=== PATIENT | female | born 1985 | race Caucasian/White ===

== ENCOUNTER 2016-10-26 07:03 | Emergency (ER) | payer BC ==
--- NOTE | 2016-10-26 07:15 | UC ---
Throat Pain/Nasal Bill HPI - HPI Summary HPI Summary: cough congestion x 7 days, bilat ears plugged, nonprod cough, helped somewhat by mucinex. No fever. No hx asthma. s/p T&A. 9month old daughter is on Amox for OM. - History of Current Complaint Stated Complaint: COLD SYMPTOMS Time Seen by Provider: 10/26/16 07:08 Hx Obtained From: Patient Hx Last Menstrual Period: 12/22/14 ?: No Onset/Duration: Gradual Onset, Lasting Days, Still Present Severity: Moderate Pain Intensity: 4 Pain Scale Used: 0-10 Numeric Cough: Nonproductive Associated Signs & Symptoms: Positive: Sinus Discomfort, Nasal Discharge. Negative: Fever Related History: T & A - Epiglottits Risk Factors Epiglottis Risk Factors: Negative - Allergies/Home Medications Allergies/Adverse Reactions: Allergies Allergy/AdvReac Type Severity Reaction Status Date / Time Metronidazole [From Flagyl] Allergy Intermediate Difficulty Verified 10/26/16 07 :15 Breathing Prednisone Allergy Intermediate Difficulty Verified 10/26/16 07:15 Breathing Propranolol Allergy Intermediate Hives Verified 10/26/16 07:15 Home Medications: Home Medications Ibuprofen TAB* [Motrin TAB* 800 MG] 800 mg PO ONCE PRN 10/26/16 [History Confirmed 10/26/16] Mucinex Severe Congestion 1 dose PO ONCE PRN 10/26/16 [History Confirmed ] Multivitamins/Minerals TAB* [Thera M Plus TAB*] 1 tab PO DAILY 10/26/16 [ History Confirmed 10/26/16] Pseudoephedrine-Ibuprofen [Advil Cold & Sinus] 1 tab PO DAILY PRN 10/26/16 [ History Confirmed 10/26/16] PMH/Surg Hx/FS Hx/Imm Hx Previously Healthy: Yes Psychological History Of: Reports: Anxiety - Surgical History Surgical History: Yes Surgery Procedure, Year, and Place: Tonsillectomy, - Family History Known Family History: Positive: Hypertension - Social History Occupation: Employed Full-time Lives: With Family Alcohol Use: None Substance Use Type: None Smoking Status (MU): Never Smoked Tobacco - Immunization History Most Recent Influenza Vaccination: 08/08/15 Most Recent Tetanus Shot: 12/26/15 Most Recent Pneumonia Vaccination: none Review of Systems Constitutional: Negative Skin: Negative Eyes: Negative ENT: Sore Throat, Ear Ache Respiratory: Cough Cardiovascular: Negative Gastrointestinal: Negative Genitourinary: Negative Motor: Negative Neurovascular: Negative Musculoskeletal: Negative Neurological: Negative Psychological: Negative All Other Systems Reviewed And Are Negative: Yes Physical Exam Triage Information Reviewed: Yes Appearance: Well-Nourished, Ill-Appearing, Pain Distress Vital Signs: noted and normal Vital Signs Reviewed: Yes Eyes: Positive: Conjunctiva Clear ENT: Positive: Pharyngeal erythema, TM dull, Other: - sinus tenderness bilat. Negative: Tonsillar swelling, Tonsillar exudate Neck: Positive: Supple, Nontender, No Lymphadenopathy Respiratory: Positive: Chest non-tender, Lungs clear, Normal breath sounds, No respiratory distress Cardiovascular: Positive: RRR, No Murmur, Pulses Normal, Brisk Capillary Refill Musculoskeletal: Positive: Strength Intact, ROM Intact Neurological: Positive: Alert, Muscle Tone Normal Psychological Exam: Normal Skin Exam: Normal Throat Pain/Nasal Course/Dx - Differential Dx/Diagnosis Differential Diagnosis/HQI/PQRI: Otitis Media, Pharyngitis, Sinusitis, URI Provider Diagnoses: acute sinusitis Discharge - Discharge Plan Condition: Stable Disposition: HOME Prescriptions: Amoxicillin/Clavulanate TAB* [Augmentin TAB 875*] 875 mg PO BID #20 tab Benzonatate CAP* [Tessalon CAP*] 100 mg PO TID PRN #20 cap PRN Reason: Cough Patient Education Materials: Sinusitis (ED) Referrals: Brittany Pringle [Primary Care Provider] -
[2016-10-26 07:24] VITALS: BP 135/82
== END 2016-10-26 07:34 | disposition home or self-care (01) ==
LOC: UCCORT 07:03
DX: J01.90 Acute sinusitis, unspecified (principal); Z88.1 Allergy status to other antibiotic agents
CPT/HCPCS: 99212; G0463

== ENCOUNTER 2017-06-29 07:52 | Emergency (ER) | payer BC, OTHER ==
[2017-06-29 08:02] VITALS: BP 117/75
--- NOTE | 2017-06-29 08:32 | UC ---
Respiratory Complaint HPI - HPI Summary HPI Summary: 32 yo female with 2 week hx of sinus pressure and pain which has been waxing and waning worse x 3 days with right cheek swelling and right upper dental sensitivity - History of Current Complaint Chief Complaint: UCRespiratory Stated Complaint: SINUS PRESSURE Time Seen by Provider: 06/29/17 08:05 Hx Obtained From: Patient Hx Last Menstrual Period: 06/21/17 Onset/Duration: Gradual Onset, Lasting Weeks Timing: Constant Severity Initially: Mild Severity Currently: Moderate Pain Intensity: 8 - PT DECLINES ANALGESIC Pain Scale Used: 0-10 Numeric Associated Signs And Symptoms: Positive: Nasal Congestion, Sinus Discomfort - Allergies/Home Medications Allergies/Adverse Reactions: Allergies Allergy/AdvReac Type Severity Reaction Status Date / Time Metronidazole [From Flagyl] Allergy Intermediate Difficulty Verified 06/29/17 07 :57 Breathing Prednisone Allergy Intermediate Difficulty Verified 06/29/17 07:57 Breathing Propranolol Allergy Intermediate Hives Verified 06/29/17 07:57 Home Medications: Home Medications Pseudoephedrine TAB* [Sudafed TAB*] 60 mg PO Q6H PRN 06/29/17 [History Confirmed 06/29/17] PMH/Surg Hx/FS Hx/Imm Hx Previously Healthy: Yes Respiratory History: Asthma - Surgical History Surgical History: Yes Surgery Procedure, Year, and Place: Tonsillectomy,. - Family History Known Family History: Positive: Hypertension Negative: Cardiac Disease, Diabetes - Social History Alcohol Use: Occasionally Substance Use Type: None Smoking Status (MU): Never Smoked Tobacco - Immunization History Most Recent Influenza Vaccination: 08/08/15 Most Recent Tetanus Shot: 12/26/15 Most Recent Pneumonia Vaccination: none Review of Systems Constitutional: Negative Skin: Negative Eyes: Negative ENT: Dental Pain, Nasal Discharge, Sinus Congestion, Sinus Pain/Tenderness Respiratory: Negative Cardiovascular: Negative Gastrointestinal: Negative Genitourinary: Negative Motor: Negative Neurovascular: Negative Musculoskeletal: Negative Neurological: Negative Psychological: Negative All Other Systems Reviewed And Are Negative: Yes Physical Exam Triage Information Reviewed: Yes Appearance: Well-Appearing, No Pain Distress, Well-Nourished Vital Signs: Initial Vital Signs Temp 97.9 F 06/29/17 07:58 Pulse 91 06/29/17 07:58 Resp 16 06/29/17 07:58 BP 117/75 06/29/17 07:58 Pulse Ox 100 06/29/17 07:58 Vital Signs Reviewed: Yes Eyes: Positive: Conjunctiva Clear ENT: Positive: Hearing grossly normal, Nasal congestion, TMs normal. Negative: Nasal drainage, TM bulging, TM dull, TM red, Tonsillar swelling, Tonsillar exudate, Trismus, Muffled/hoarse voice Dental: Negative: Percussion Tenderness @, Gross Decay/Caries @, Abscess @ Neck: Positive: Supple, Nontender, No Lymphadenopathy Respiratory: Positive: Lungs clear, Normal breath sounds, No respiratory distress, No accessory muscle use Cardiovascular: Positive: RRR, No Murmur Neurological: Positive: Alert, Muscle Tone Normal Psychological Exam: Normal Skin Exam: Normal UC Diagnostic Evaluation - Laboratory O2 Sat by Pulse Oximetry: 100 Respiratory Course/Dx - Differential Dx/Diagnosis Provider Diagnoses: acute sinusitis Discharge - Discharge Plan Condition: Stable Disposition: HOME Prescriptions: Amoxicillin PO (*) [Amoxicillin 875 MG (*)] 875 mg PO BID #20 tab Patient Education Materials: Sinusitis (ED) Referrals: Brittany Pringle [Primary Care Provider] - 5 Days Additional Instructions: warm facial compresses saline nasal spray Images Head: 1 - swollen/tender/no overlying erthema
== END 2017-06-29 08:20 | disposition home or self-care (01) ==
LOC: UCCORT 07:52
DX: J01.90 Acute sinusitis, unspecified (principal); Z88.3 Allergy status to other anti-infective agents; J45.909 Unspecified asthma, uncomplicated
CPT/HCPCS: 99212; G0463

== ENCOUNTER 2018-07-08 11:15 | Inpatient (IN) | payer OTHER ==
[2018-07-08 12:11] LABS: ABS Basophils 0 10^3/ul (0-0.2); ABS Eosinophils 0 10^3/ul (0-0.6); ABS Lymphocytes 1.1 10^3/ul (1.0-4.8); ABS Neutrophils 10.3 10^3/ul (1.5-7.7); ABS Nucleated RBC 0 10^3/ul; Eosinophil % 0.3 % (0-6); Hematocrit 40 % (35-47); Hemoglobin 13.6 g/dl (12.0-16.0); Lymphocyte % 8.9 % (25-47); Mean Corpuscular HGB Conc 35 g/dl (31-36); Mean Corpuscular Hemoglobin 32 pg (27-31); Mean Corpuscular Volume 92 fL (80-97); Mean Platelet Volume 9.5 um3 (7.4-10.4); Nucleated Red Blood Cells % 0; Platelet Count 229 10^3/ul (150-450); Red Blood Count 4.29 10^6/ul (4.00-5.40); Red Cell Distribution Width 13 % (10.5-15); White Blood Count 12.5 10^3/ul (3.5-10.8)
[2018-07-08] MEDS: Acetaminophen TAB* 325 MG ONE (12:25)
[2018-07-08 12:29] LABS: EGFR Non-African American 104.5 (>60); Uric Acid 4.6 mg/dL (2.3-6.6)
--- NOTE | 2018-07-08 12:33 | PN ---
L&D Outpatient: Visit - Reproductive Information Estimated Due Date: 07/15/18 Gestational Age: 39 Weeks and 0 Days : 2 Para: 1 - Reason for Visit Visit Reason: headache - Antepartal Records Antepartal Record: Reviewed, Complicated by: - Patient History Patient History Significant: No Review of Systems Constitutional: Comfortable Gastrointestinal: No Nausea/Vomiting Genitourinary: No Bleeding, No Leaking Fluid Musculoskeletal: No Epigastric Pain Neurological: No Visual Changes, Headache L&D Outpatient: Exam Vitals - Most Recent: BP-153 /104 Lab Values - Entire Visit: Laboratory Tests 07/08/18 07/08/18 11:55 11:55 WBC 12.5 H RBC 4.29 Hgb 13.6 Hct 40 MCV 92 MCH 32 H MCHC 35 RDW 13 Plt Count 229 MPV 9.5 Neut % (Auto) 82.4 Lymph % (Auto) 8.9 L Mcminn % (Auto) 8.1 H Eos % (Auto) 0.3 Baso % (Auto) 0.3 Absolute Neuts (auto) 10.3 H Absolute Lymphs (auto) 1.1 Absolute Monos (auto) 1.0 H Absolute Eos (auto) 0 Absolute Basos (auto) 0 Absolute Nucleated RBC 0 Nucleated RBC % 0 Sodium 137 Potassium 3.7 Chloride 106 Carbon Dioxide 21 L Anion Gap 10 BUN 10 Creatinine 0.66 Est GFR ( Amer) 126.4 Est GFR (Non-Af Amer) 104.5 BUN/Creatinine Ratio 15.2 Glucose 76 Uric Acid 4.6 Calcium 9.4 Total Bilirubin 0.30 AST 14 ALT 11 Alkaline Phosphatase 98 Total Protein 7.0 Albumin 3.7 Globulin 3.3 Albumin/Globulin Ratio 1.1 - Abdominal Exam Abdomen Exam: Non-Tender - Membranes Membrane Status: Intact - Ultrasound/Biophysical Profile Ultrasound Status: Not Done EFM Findings - External Monitor Findings Baseline Heart Rate: 150 External Monitor Findings: Accelerations Present, Variability Moderate, Baseline Stable Contractions: None L&D Outpatient: Asses/Plan Assessment: hypertension and headache labs pending Plan: Continue Observation - awaiting labs to determine gestational hypertension vs preeeclampsia
[2018-07-08 12:34] LABS: Urine Appearance Clear; Urine Blood 1+ (Negative); Urine Color Straw; Urine Ketones Negative (Negative); Urine Protein Negative (Negative); Urine Red Blood Cell Trace(0-2/hpf) (Absent); Urine Specific Gravity 1.003 (1.010-1.030); Urine Urobilinogen Negative (Negative); Urine White Blood Cell Absent (Absent)
[2018-07-09 08:28] VITALS: BP 136/81
[2018-07-09] MEDS ORDERED: Acetaminophen TAB* 325 MG ONE (13:11)
[2018-07-09] MEDS: Acetaminophen TAB* 325 MG ONE (13:18)
[2018-07-09] MEDS ORDERED: Acetaminophen TAB* 325 MG PO PRN (13:29)
--- NOTE | 2018-07-09 14:11 | PN ---
Work Excuse - Work Note Work Note: The above employee has been evaluated on 07/08/18. The physician has instructed the employee concerning further work as described below. Work Status: [Pt is out of work until 8 weeks post delivery] Kisha Padilla MD [id number]
== END 2018-07-09 14:26 | disposition home or self-care (01) | DRG 781 ==
LOC: MCHOBOUT 11:15 → MCHOB 12:38
PROVIDERS: ADMIT Obstetrics & Gynecology; ATTEND Obstetrics & Gynecology
PROC: 4A1HXCZ Monitoring of Products of Conception, Cardiac Rate, External Approach (ICD-10-PCS; principal; 2018-07-09)
DX: O16.3 Unspecified maternal hypertension, third trimester (principal); Z3A.39 39 weeks gestation of pregnancy; Z88.8 Allergy status to other drugs, medicaments and biological substances
CPT/HCPCS: 36415; 80053; 81003; 81015; 84156; 84550; 85025; A9270-GY

== ENCOUNTER 2018-07-12 05:53 | Inpatient (IN) | payer OTHER ==
[~2018-07-12 05:53] MED LIST: Buffered Lidocaine 0.9% SYRIN* 5 ML/SYR SYRINGE INTRADERM ONE
[2018-07-12] MEDS ORDERED: Phenylephrine IV* 40 MCG/ML 10 ML SYRINGE ONE (07:17)
[2018-07-12] MEDS ORDERED: Bupivacaine-MPF SPINAL* 7.5 MG/ML - 2ML AMP ONE (07:18)
[2018-07-12] MEDS ORDERED: fentaNYL* 50 MCG/ML 2 ML VIAL (100 MCG VIAL) ONE (07:18)
[2018-07-12] MEDS ORDERED: Morphine PF AMP (0.5MG/ML)* 5 MG/10 ML AMP ONE (07:18)
[2018-07-12] MEDS ORDERED: Lidocaine 2% EPI 1:200000 MPF*10-20 ML VIAL ONE (07:24)
[2018-07-12] MEDS ORDERED: Famotidine IV* 10 MG/ML 2 ML (20 mg) IV SLOW PU ONE (07:32)
[2018-07-12] MEDS ORDERED: Sodium Citrate/Citric Acid* 15 ML UDC PO ONE (07:32)
[2018-07-12] MEDS ORDERED: Sodium Citrate/Citric Acid* 15 ML UDC ONE (07:37)
[2018-07-12] MEDS ORDERED: Famotidine IV* 10 MG/ML 2 ML (20 mg) ONE (07:39)
[2018-07-12] MEDS ORDERED: ceFOXitin 2 GM IVPREMIX* 2 GM/50 ML BAG IVPB ONE (07:39)
[2018-07-12] MEDS ORDERED: ceFOXitin 2 GM IVPREMIX* 2 GM/50 ML BAG ONE (07:41)
[2018-07-12] MEDS ORDERED: OXYTOCIN* 10 UNITS/ML 1 ML VIAL ONE ×2 (08:40→08:45)
[2018-07-12] MEDS ORDERED: Ondansetron INJ* 2 MG/ML VIAL IV PRN (08:57)
[2018-07-12] MEDS ORDERED: Metoclopramide IV* 5 MG/ML 2 ML VIAL IV PRN (08:57)
[2018-07-12] MEDS ORDERED: Naloxone* 0.4 MG/ML 1 ML VIAL IV PRN (08:57)
[2018-07-12] MEDS ORDERED: diPHENhydraMINE IV* 50 MG/ML 1 ml VIAL (BENADRYL) IV PRN (08:57)
[2018-07-12] MEDS ORDERED: oxyCODONE/Acetamin 5/325 MG* TAB PO PRN ×2 (08:57→09:48)
[2018-07-12] MEDS ORDERED: oxyCODONE TAB* 5 MG TAB PO PRN (08:57)
[2018-07-12] MEDS ORDERED: Witch Hazel PAD* JAR TOPICAL PRN (09:48)
[2018-07-12] MEDS ORDERED: Acetaminophen TAB* 325 MG PO PRN (09:48)
--- NOTE | 2018-07-12 09:54 | PROCNOTE ---
[facility] OB: Delivery Note - Delivery A Date of : 07/12/18 Time of : 08:41 Weight at : 6 lb 11 oz Score 1 Minute: 8 Score 5 Minutes: 9 Gestational Age in Weeks and Days at Delivery: 39 Weeks and 0 Days Delivery Method: Repeat Section Labor: Not in Labor Details: Scheduled Reason for Section: Previous C/Sec Did Patient attempt ?: No, Did not attempt Amniotic Fluid: Clear Estimated Blood Loss: 700 Anesthesia/Analgesia: Spinal for Delivered By: Manju Carrion - Nursery Level of Nursery: Regular/Bedside - Perineum Perineal Repair: None - Events Delivery Events of Note: None Apply - Risk for Falls Other Risk for Falls: none - Additional Delivery Notes Additional Delivery Notes: See dictation
[2018-07-12] MEDS: Ketorolac INJ* 30 MG/ML 1 ML VIAL IV PRN ×3 (10:56→23:16)
[2018-07-12] MEDS: Docusate CAP* 100 MG PO SCH ×2 (13:20→20:05)
[2018-07-12] MEDS: Simethicone TAB* 80 MG TAB.CHEW PO SCH ×3 (13:20→20:05)
[2018-07-12] MEDS: Acetaminophen TAB* 325 MG PO PRN ×2 (14:07→20:04)
--- NOTE | 2018-07-13 01:41 | OP ---
DATE OF OPERATION: 07/12/18 - ROOM #103 DATE OF : 89 SURGEON: Manju Carrion MD SCRAP HOIST OPERATOR: Lexx Reina CNM ANESTHESIOLOGIST: Dr. Cristobal. ANESTHESIA: Spinal. PRE-OP DIAGNOSIS: 39 weeks' gestation with gestational hypertension, history of section and satisfied parity. POST-OP DIAGNOSIS: 39 weeks' gestation with gestational hypertension, history of section and satisfied parity. OPERATIVE PROCEDURE: Repeat low transverse section and bilateral tubal ligation. ESTIMATED BLOOD LOSS: 700 cc. URINE OUTPUT: 300 cc. IV FLUIDS: 3000 cc lactated Ringer's. MATERIALS TO LAB: Cord blood and bilateral fallopian tube segments. INDICATIONS: This patient was a 33-year-old, 2 para 1, followed during her with gestational hypertension. The patient had a history of severe preeclampsia in her previous . She had been hoping to go into labor, but this never happened before her scheduled date today. The patient strongly desired to have permanent sterilization performed. She was counselled and consented for a repeat section and bilateral tubal ligation. FINDINGS: Normal appearing uterus, fallopian tubes and ovaries. Delivery is productive of a 6-pound 11-ounce female with Apgars of 8 and 9. Time of delivery was 0841. COMPLICATIONS: None. DESCRIPTION OF PROCEDURE: The risks, benefits, and alternatives were described to the patient, and informed consent was obtained. The patient was taken to the operating room with IV running, where spinal anesthesia was induced and found to be adequate. The patient was prepped and draped in the normal sterile fashion in the dorsal supine position with a leftward tilt. A Pfannenstiel skin incision was made with a scalpel through the patient's previous incision. This was carried down to the underlying fascia using the scalpel. The fascia was scored in the midline, and the incision was extended using Goins scissors. The fascia was dissected off the underlying rectus muscles using blunt and sharp dissection. The rectus muscles were in the midline using dissection with a Ana Maria clamp. The peritoneum was then entered sharply. A bladder blade was placed. A bladder flap was created sharply using Metzenbaum scissors. A low transverse uterine incision was then made with the scalpel. This was carried down to the amniotic membranes. The membranes were then ruptured, productive of clear fluid. The uterine incision was extended using blunt traction. The head was elevated to the level of the incision, and, with fundal pressure, the head delivered without difficulty. The shoulders then were also both delivered and the body followed. The infant had excellent tone and cried immediately on delivery. The cord was doubly clamped and cut. The was then handed to the awaiting pediatrician/medical doctor. Cord blood was collected. The placenta was delivered with manual extraction. The uterus was then exteriorized and cleared of all clots and debris. The uterine incision was then reapproximated using 0 Polysorb in a running-locked fashion. A second layer of imbricating 0 Polysorb sutures was then also placed for good hemostasis. The posterior cul-de-sac was irrigated with saline. The right fallopian tube was grasped with a Machelle clamp in the midisthmic region. A window was made in the mesosalpinx with the Bovie, and this was extended. An approximately 3-4 cm segment of the tube was then tied off using 2 -0 chromic ties. The tied off tube was then excised using Metzenbaum scissors with good hemostasis noted. The same was then performed on the patient's left side. The uterus was then returned to the abdomen. The incision and tubal ligation sites were reinspected and still noted to be hemostatic. The peritoneum was closed with 3-0 Vicyrl in a running fashion. The fascia was closed with 0 Polysorb in a running fashion. The subcutaneous tissues were copiously irrigated and made hemostatic using the Bovie. The subcutaneous tissues were then reapproximated using 3-0 Vicryl in interrupted sutures. The skin was then closed with 4-0 Monocryl in a subcuticular stitch, and this was overlaid with Mastisol and steristrips. A sterile bandage was then placed over the incision. The patient tolerated the procedure well. Sponge, lap, and needle counts were correct x2. [id number]/[facility] #: [id number] [facility]
[2018-07-13] MEDS: Acetaminophen TAB* 325 MG PO PRN (01:45)
[2018-07-13] MEDS: oxyCODONE/Acetamin 5/325 MG* TAB PO PRN ×5 (05:37→22:04)
[2018-07-13 07:19] LABS: ABS Basophils 0.1 10^3/ul (0-0.2); ABS Eosinophils 0.1 10^3/ul (0-0.6); ABS Lymphocytes 1.3 10^3/ul (1.0-4.8); ABS Monocytes 0.8 10^3/ul (0-0.8); ABS Neutrophils 12.7 10^3/ul (1.5-7.7); ABS Nucleated RBC 0 10^3/ul; Eosinophil % 0.6 % (0-6); Hematocrit 39 % (35-47); Hemoglobin 13.3 g/dl (12.0-16.0); Lymphocyte % 8.9 % (25-47); Mean Corpuscular HGB Conc 35 g/dl (31-36); Mean Corpuscular Hemoglobin 32 pg (27-31); Mean Corpuscular Volume 93 fL (80-97); Mean Platelet Volume 8.5 um3 (7.4-10.4); Nucleated Red Blood Cells % 0; Platelet Count 212 10^3/ul (150-450); Red Blood Count 4.16 10^6/ul (4.00-5.40); Red Cell Distribution Width 13 % (10.5-15)
[2018-07-13] MEDS: Simethicone TAB* 80 MG TAB.CHEW PO SCH ×4 (08:53→22:04)
[2018-07-13] MEDS: Docusate CAP* 100 MG PO SCH ×3 (08:53→22:04)
[2018-07-13] MEDS ORDERED: Ferrous Gluconate TAB* 324 MG TAB PO SCH (09:00)
[2018-07-13] MEDS: Ibuprofen TAB* 600 MG PO PRN (12:02)
[2018-07-14] MEDS: Ibuprofen TAB* 600 MG PO PRN ×2 (00:58→08:26)
[2018-07-14] MEDS: oxyCODONE/Acetamin 5/325 MG* TAB PO PRN ×2 (06:14→10:15)
[2018-07-14 08:03] VITALS: BP 125/82
[2018-07-14] MEDS: Docusate CAP* 100 MG PO SCH (08:25)
== END 2018-07-14 10:44 | disposition home or self-care (01) | DRG 766 ==
LOC: MCHOB 05:53
PROVIDERS: ADMIT Obstetrics & Gynecology; ATTEND Obstetrics & Gynecology
PROC: 0UB70ZZ Excision of Bilateral Fallopian Tubes, Open Approach (ICD-10-PCS; 2018-07-12)
PROC: 4A1HX4Z Monitoring of Products of Conception, Cardiac Electrical Activity, External Approach (ICD-10-PCS; 2018-07-12)
PROC: 10D00Z1 Extraction of Products of Conception, Low, Open Approach (ICD-10-PCS; principal; 2018-07-12 07:45)
DX: O13.4 Gestational [pregnancy-induced] hypertension without significant proteinuria, complicating childbirth (principal); O34.211 Maternal care for low transverse scar from previous cesarean delivery; Z37.0 Single live birth; Z3A.39 39 weeks gestation of pregnancy; Z30.2 Encounter for sterilization; Z88.1 Allergy status to other antibiotic agents; Z88.8 Allergy status to other drugs, medicaments and biological substances
CPT/HCPCS: 36415; 85025; 88302; 90686; A9270-GY; J0694; J1885; J2590; J3010